=== PATIENT | female | born 1930 | race Caucasian/White ===

== ENCOUNTER 2016-05-20 16:04 | Inpatient (IN) | payer MEDICARE, BC ==
[2016-05-20 18:17] LABS: HEMATOCRIT 36.5 % (36.0-47.0); HEMOGLOBIN 11.9 g/dL (12.0-15.5); HGB HCT DIFFERENCE -0.8; MEAN CORPUSCULAR HEMOGLOBIN 30.5 pg (27.0-33.4); MEAN CORPUSCULAR HGB CONC 32.7 g/dL (32.0-36.0); MEAN CORPUSCULAR VOLUME 93 fl (80-97); RED BLOOD COUNT 3.91 10^6/uL (3.72-5.28); RED CELL DISTRIBUTION WIDTH 19.1 % (11.5-14.0); WHITE BLOOD COUNT 5.5 10^3/uL (4.0-10.5)
[2016-05-20 18:43] LABS: ALANINE AMINOTRANSFERASE 22 U/L (9-52); ALBUMIN 3.2 g/dL (3.5-5.0); ALKALINE PHOSPHATASE 109 U/L (38-126); ANION GAP 11 (5-19); ASPARTATE AMINO TRANSFERASE 26 U/L (14-36); BLOOD UREA NITROGEN 16 mg/dL (7-20); CALCIUM 9.4 mg/dL (8.4-10.2); CARBON DIOXIDE 25 mmol/L (22-30); CHLORIDE 105 mmol/L (98-107); CREATININE RESULT 0.84 mg/dL (0.52-1.25); GLUCOSE 89 mg/dL (75-110); POTASSIUM 4.5 mmol/L (3.6-5.0); SODIUM 141.3 mmol/L (137-145); TOTAL PROTEIN 6.2 g/dL (6.3-8.2)
[2016-05-20 19:10] LABS: THYROID STIMULATING HORMONE 2.69 uIU/mL (0.47-4.68)
[2016-05-20] MEDS ORDERED: LORAZEPAM 1 MG TABLET PO ONE (19:15)
--- NOTE | 2016-05-20 19:52 | EKG REPORT ---
SEVERITY:- ABNORMAL ECG - ATRIAL FIBRILLATION, V-RATE 40-68 PROLONGED QT INTERVAL : Confirmed by: Rere Chen 20-May-2016 19:51:58
[2016-05-20] MEDS: HYDROCODONE/ACETAMINOPHEN 10-325 MG TABLET PO PRN (19:54)
[2016-05-21] MEDS ORDERED: (PENDING PHARMACY ID) (Sennosides [Senna Laxative] 8.6 MG) PO PRN (01:23)
[2016-05-21] MEDS ORDERED: HYDROCODONE/ACETAMINOPHEN 10-325 MG TABLET PO PRN (01:23)
[2016-05-21 01:26] LABS: APPEARANCE,URINE CLEAR; BILIRUBIN,URINE NEGATIVE (NEGATIVE); GLUCOSE, URINE NEGATIVE (NEGATIVE); KETONES,URINE NEGATIVE (NEGATIVE); LEUKOCYTE ESTERASE,URINE SMALL (NEGATIVE); NITRITE,URINE NEGATIVE (NEGATIVE); PROTEIN,URINE NEGATIVE (NEGATIVE); URINE SPECIFIC GRAVITY 1.021
[2016-05-21] MEDS ORDERED: TEMAZEPAM 15 MG CAPSULE PO ONE (02:15)
[2016-05-21] MEDS: LANSOPRAZOLE 30 MG TAB.RAP.DR PO SCH (05:22)
[2016-05-21] MEDS ORDERED: LORAZEPAM 1 MG TABLET PO SCH (10:00)
[2016-05-21] MEDS: CYANOCOBALAMIN (VITAMIN B-12) 1,000 MCG TABLET PO SCH (10:25)
[2016-05-21] MEDS: PAROXETINE HCL 20 MG TABLET PO SCH (10:26)
[2016-05-21] MEDS: OXYBUTYNIN CHLORIDE 5 MG TABLET PO SCH ×2 (10:27→17:02)
[2016-05-21] MEDS: LEVETIRACETAM 500 MG TABLET PO SCH ×2 (10:27→17:02)
[2016-05-21] MEDS: OMEGA-3 ACID ETHYL ESTERS 1 GM CAPSULE PO SCH ×2 (10:28→16:59)
[2016-05-21] MEDS: ASPIRIN 81 MG TABLET, CHEWABLE PO SCH (10:30)
[2016-05-21] MEDS: AMLODIPINE BESYLATE 2.5 MG TABLET PO SCH (10:30)
[2016-05-21] MEDS: LORAZEPAM 1 MG TABLET PO SCH ×2 (10:31→17:04)
[2016-05-21] MEDS: BUDESONIDE/FORMOTEROL 160-4.5 MCG 60 PUFF/6 GM MDI IH SCH ×2 (10:34→17:03)
[2016-05-21] MEDS: NORMAL SALINE 1000 ML 1,000 ML IV PRN (14:35)
[2016-05-21 16:48] LABS: ABSOLUTE EOSINOPHILS # (AUTO) 0.3 10^3/uL (0.0-0.6); ABSOLUTE LYMPHOCYTES (AUTO) 0.9 10^3/uL (0.5-4.7); ABSOLUTE MONOCYTES (AUTO) 0.2 10^3/uL (0.1-1.4); BASOPHILS % (AUTO) 0.5 % (0-2); EOSINOPHILS % (AUTO) 5.7 % (0-6); HEMATOCRIT 32.1 % (36.0-47.0); HEMOGLOBIN 10.6 g/dL (12.0-15.5); HGB HCT DIFFERENCE -0.3; LYMPHOCYTES % (AUTO) 21.3 % (13-45); MEAN CORPUSCULAR HGB CONC 33.2 g/dL (32.0-36.0); MEAN CORPUSCULAR VOLUME 93 fl (80-97); MONOCYTES % (AUTO) 4.6 % (3-13); RED BLOOD COUNT 3.43 10^6/uL (3.72-5.28); SEGMENTED NEUTROPHILS % (AUTO) 67.9 % (42-78); WHITE BLOOD COUNT 4.5 10^3/uL (4.0-10.5)
[2016-05-21 17:07] LABS: ALANINE AMINOTRANSFERASE 25 U/L (9-52); ALBUMIN 2.6 g/dL (3.5-5.0); ALKALINE PHOSPHATASE 89 U/L (38-126); ANION GAP 8 (5-19); ASPARTATE AMINO TRANSFERASE 20 U/L (14-36); BILIRUBIN,TOTAL 0.6 mg/dL (0.2-1.3); BLOOD UREA NITROGEN 15 mg/dL (7-20); CALCIUM 8.7 mg/dL (8.4-10.2); CARBON DIOXIDE 25 mmol/L (22-30); CHLORIDE 105 mmol/L (98-107); CREATININE RESULT 0.85 mg/dL (0.52-1.25); GLUCOSE 96 mg/dL (75-110); POTASSIUM 3.9 mmol/L (3.6-5.0); SODIUM 137.5 mmol/L (137-145); TOTAL PROTEIN 5.3 g/dL (6.3-8.2)
[2016-05-21] MEDS: METOPROLOL SUCCINATE 50 MG TAB.SR.24H PO SCH (18:42)
--- NOTE | 2016-05-21 19:19 | PDOC H&P ---
History of Present Illness Admission Date/PCP: 05/20/16 16:04 History of Present Illness: RIRI MCHUGH is a 85 year old female, she came to the office with the daughter because of progressive weight loss, anorexia. Patient's daughter was concerned that she has not been eating and drinking well for the last couple of days and she was particularly concern about dehydration. She obviously has lost a lot of weight, in the office, she was evaluated, she is known to have history of peripheral vascular disease, the pedal pulses were both absent On palpation, bilaterally., She has multiple comorbid conditions including intracerebral hemorrhage, COPD, primary hypertension, CT scan of abdomen and pelvis/chest was done, it shows atrophic left kidney. There is no hydronephrosis or hydroureter. There is infrarenal abdominal aortic aneurysm with maximum transverse diameter of 5.3 cm. There is endovascular stents in the infrarenal abdominal aorta extending into the common iliac arteries and the right external iliac artery. CT chest showed emphysematous changes with chronic scarring. No masses, infiltrate, pneumothorax, no pleural effusion. The thyroid function was normal, there is also associated hypoalbuminemia an independent poor prognostic indicator, the urine protein is negative on dipstick though this does not be detect albumin. She is of advanced age, I do not know how aggressive family wants to pursue diagnostic evaluation for the weight loss, she probably needed diagnostic colonoscopy. She has a history of chronic atrial fibrillation but she is not on any chronic anticoagulant since she had intracranial hemorrhage associated with Coumadin usage. Past Medical History Cardiac Medical History: Reports: Atrial Fibrillation, Congestive Heart Failure , Coronary Artery Disease, Myocardial Infarction, Hyperlipidema, Hypertension, Peripheral Vascular Disease, Pulmonary Embolism, Heart Murmur Pulmonary Medical History: Reports: Asthma, Chronic Obstructive Pulmonary Disease (COPD), Pneumonia Denies: Bronchitis Endocrine Medical History: Reports: Hypothyroidism GI Medical History: Reports: Gastroesophageal Reflux Disease Musculoskeltal Medical History: Reports: Arthritis Psychiatric Medical History: Reports: Depression Past Surgical History Past Surgical History: Reports: Appendectomy, Cardiac Catheterization, Cholecystectomy, Coronary Artery Bypass Graft, Coronary Stent, Hysterectomy, Tonsillectomy Social History Lives with: Family Smoking Status: Former Smoker Frequency of Alcohol Use: None Hx Recreational Drug Use: No Drugs: None Hx Prescription Drug Abuse: No Family History Family History: Reviewed & Not Pertinent Parental Family History Reviewed: Yes Children Family History Reviewed: Yes Sibling(s) Family History Reviewed.: Yes Medication/Allergy Home Medications: Amlodipine Besylate 2.5 mg PO DAILY 05/20/16 Aspirin [Aspirin 81 mg Chewable Tablet] 81 mg PO DAILY 05/20/16 Budesonide/Formoterol Fumarate [Symbicort HFA 160-4.5 mcg Inhaler 6 gm] 2 puff PO BID 05/20/16 Cyanocobalamin (Vitamin B-12) [B-12] 1,000 mcg PO DAILY 05/20/16 Hydrocodone Bit/Acetaminophen [Hydrocodon-Acetaminophn 10-325] 1 each PO Q6HP PRN 05/20/16 Lansoprazole 30 mg PO DAILY 05/20/16 Levetiracetam [Keppra 500 mg Tablet] 500 mg PO BID 05/20/16 Lorazepam 1 mg PO BID 05/20/16 Metoprolol Succinate 100 mg PO DAILY 05/20/16 [place]-3 Acid Ethyl Esters [Lovaza 1 gm Capsule] 2 gm PO BID 05/20/16 Oxybutynin Chloride 5 mg PO BID 05/20/16 Paroxetine HCl [Paxil] 40 mg PO QAM 05/20/16 Sennosides [Senna Laxative] 8.6 mg PO QHS PRN 05/20/16 Temazepam 15 mg PO QHS 05/20/16 Allergies/Adverse Reactions: codeine [Codeine] Allergy (Mild, Verified 07/19/13 01:16) Iodinated Contrast Media - Oral and [IV Dye, Iodine Containing] Allergy (Mild, Verified 07/19/13 01:16) Penicillins Allergy (Mild, Verified 07/19/13 01:16) Review of Systems Constitutional: PRESENT: anorexia, fatigue, weight loss Nose, Mouth, and Throat: ABSENT: headache(s), mouth pain, sore throat, vertigo, other Cardiovascular: ABSENT: as per HPI, chest pain, dyspnea on exertion, edema, orthropnea, palpitations, other Respiratory: ABSENT: as per HPI, cough, dyspnea, hemoptysis, sputum, other Gastrointestinal: PRESENT: nausea Genitourinary: ABSENT: as per HPI, difficulty urinating, dysuria, hematuria, nocturia, other Musculoskeletal: PRESENT: back pain, joint swelling - She has severe ARTHRITIS of both knees Neurological: PRESENT: abnormal gait, dizziness, frequent falls, restless legs Psychiatric: PRESENT: anxiety Physical Exam Vital Signs: Temp Pulse Resp BP Pulse Ox 98.3 F 53 L 22 H 150/65 H 94 05/21/16 16:03 05/21/16 16:03 05/21/16 16:03 05/21/16 16:03 05/21/16 16:03 Intake & Output 05/20/16 05/21/16 05/22/16 06:59 06:59 06:59 Intake Total 1050 600 Output Total 100 Balance 950 600 Weight 74.4 kg General appearance: PRESENT: mild distress, thin Eye exam: PRESENT: PERRLA Mouth exam: PRESENT: dry mucosa Teeth exam: PRESENT: edentulous Respiratory exam: PRESENT: decreased breath sounds Cardiovascular exam: PRESENT: irregular rhythm, +S1, +S2 GI/Abdominal exam: PRESENT: soft Musculoskeletal exam: PRESENT: deformity Neurological exam: PRESENT: alert Skin exam: PRESENT: dry Results Laboratory Results: 05/21/16 16:25 05/21/16 16:25 05/20/16 05/21/16 05/21/16 18:00 01:00 16:25 WBC 4.5 RBC 3.43 L Hgb 10.6 L Hct 32.1 L MCV 93 MCH 31.0 MCHC 33.2 RDW 19.0 H Plt Count 172 Seg Neutrophils % 67.9 Lymphocytes % 21.3 Monocytes % 4.6 Eosinophils % 5.7 Basophils % 0.5 Absolute Neutrophils 3.0 Absolute Lymphocytes 0.9 Absolute Monocytes 0.2 Absolute Eosinophils 0.3 Absolute Basophils 0.0 Sodium Potassium Chloride Carbon Dioxide Anion Gap BUN Creatinine Est GFR ( Amer) Est GFR (Non-Af Amer) Glucose Calcium Total Bilirubin AST ALT Alkaline Phosphatase Total Protein Albumin TSH 2.69 Free T4 1.70 Urine Color AYAD Urine Appearance CLEAR Urine pH 5.0 Ur Specific [place] 1.021 Urine Protein NEGATIVE Urine Glucose (UA) NEGATIVE Urine Ketones NEGATIVE Urine Blood NEGATIVE Urine Nitrite NEGATIVE Ur Leukocyte Esterase SMALL H Urine WBC (Auto) 2 Urine RBC (Auto) 1 05/21/16 16:25 WBC RBC Hgb Hct MCV MCH MCHC RDW Plt Count Seg Neutrophils % Lymphocytes % Monocytes % Eosinophils % Basophils % Absolute Neutrophils Absolute Lymphocytes Absolute Monocytes Absolute Eosinophils Absolute Basophils Sodium 137.5 Potassium 3.9 Chloride 105 Carbon Dioxide 25 Anion Gap 8 BUN 15 Creatinine 0.85 Est GFR ( Amer) > 60 Est GFR (Non-Af Amer) > 60 Glucose 96 Calcium 8.7 Total Bilirubin 0.6 AST 20 ALT 25 Alkaline Phosphatase 89 Total Protein 5.3 L Albumin 2.6 L TSH Free T4 Urine Color Urine Appearance Urine pH Ur Specific [place] Urine Protein Urine Glucose (UA) Urine Ketones Urine Blood Urine Nitrite Ur Leukocyte Esterase Urine WBC (Auto) Urine RBC (Auto) Impressions: Abdomen/Pelvis CT 05/20/16 00:00 IMPRESSION: INFRARENAL ABDOMINAL AORTIC ANEURYSM WITH ENDOVASCULAR STENT IN THE INFRARENAL ABDOMINAL AORTA EXTENDING INTO THE ILIAC ARTERIES. OTHER CHRONIC FINDINGS ABOVE INCLUDING CHRONIC ATROPHY OF THE LEFT KIDNEY. NO OTHER SIGNIFICANT OR ACUTE PROCESS IN THE ABDOMEN OR PELVIS. Chest CT 05/20/16 00:00 IMPRESSION: FOCAL PLEURAL THICKENING VERSUS PLEURAL-BASED MASS IN THE LEFT LATERAL CHEST WALL. NO OTHER SIGNIFICANT FINDINGS. Chest X-Ray 05/20/16 00:00 IMPRESSION: No acute findings. Assessment & Plan - Diagnosis (1) Dehydration Is this a current diagnosis for this admission?: YesPlan: She would be treated with IV fluid for hydration (2) Unexplained weight loss Is this a current diagnosis for this admission?: Yes (3) Hypoalbuminemia due to protein-calorie malnutrition Is this a current diagnosis for this admission?: YesPlan: There is hypoalbuminemia due to protein calorie malnutrition consultation from nutritional we be requested (4) Chronic atrial fibrillation Is this a current diagnosis for this admission?: Yes
[2016-05-21] MEDS: TEMAZEPAM 15 MG CAPSULE PO SCH (21:15)
[2016-05-22] MEDS: LANSOPRAZOLE 30 MG TAB.RAP.DR PO SCH (05:27)
[2016-05-22] MEDS: OMEGA-3 ACID ETHYL ESTERS 1 GM CAPSULE PO SCH ×2 (07:38→18:06)
[2016-05-22] MEDS: PAROXETINE HCL 20 MG TABLET PO SCH (07:39)
[2016-05-22] MEDS: METOPROLOL SUCCINATE 50 MG TAB.SR.24H PO SCH (09:45)
[2016-05-22] MEDS: LEVETIRACETAM 500 MG TABLET PO SCH ×2 (09:47→18:11)
[2016-05-22] MEDS: AMLODIPINE BESYLATE 2.5 MG TABLET PO SCH (09:47)
[2016-05-22] MEDS: ASPIRIN 81 MG TABLET, CHEWABLE PO SCH (09:50)
[2016-05-22] MEDS: CYANOCOBALAMIN (VITAMIN B-12) 1,000 MCG TABLET PO SCH (09:50)
[2016-05-22] MEDS: OXYBUTYNIN CHLORIDE 5 MG TABLET PO SCH ×2 (09:51→18:12)
[2016-05-22] MEDS: BUDESONIDE/FORMOTEROL 160-4.5 MCG 60 PUFF/6 GM MDI IH SCH ×2 (09:52→18:16)
[2016-05-22] MEDS: LORAZEPAM 1 MG TABLET PO SCH ×2 (09:57→18:12)
--- NOTE | 2016-05-22 18:29 | PDOC PROGRESS REPORT ---
Subjective Progress Note for:: 05/21/16 Subjective:: Patient was seen by the bedside. Still on IV fluids yet to be be seen by nutrition Physical Exam Vital Signs: Temp Pulse Resp BP Pulse Ox 98.3 F 53 L 22 H 150/65 H 94 05/21/16 16:03 05/21/16 16:03 05/21/16 16:03 05/21/16 16:03 05/21/16 16:03 Intake & Output 05/20/16 05/21/16 05/22/16 06:59 06:59 06:59 Intake Total 1050 600 Output Total 100 Balance 950 600 Weight 74.4 kg General appearance: PRESENT: no acute distress Eye exam: PRESENT: PERRLA Respiratory exam: PRESENT: clear to auscultation peggy Cardiovascular exam: PRESENT: +S1, +S2 Results Laboratory Results: 05/21/16 16:25 05/21/16 16:25 05/21/16 05/21/16 05/21/16 01:00 16:25 16:25 WBC 4.5 RBC 3.43 L Hgb 10.6 L Hct 32.1 L MCV 93 MCH 31.0 MCHC 33.2 RDW 19.0 H Plt Count 172 Seg Neutrophils % 67.9 Lymphocytes % 21.3 Monocytes % 4.6 Eosinophils % 5.7 Basophils % 0.5 Absolute Neutrophils 3.0 Absolute Lymphocytes 0.9 Absolute Monocytes 0.2 Absolute Eosinophils 0.3 Absolute Basophils 0.0 Sodium 137.5 Potassium 3.9 Chloride 105 Carbon Dioxide 25 Anion Gap 8 BUN 15 Creatinine 0.85 Est GFR ( Amer) > 60 Est GFR (Non-Af Amer) > 60 Glucose 96 Calcium 8.7 Total Bilirubin 0.6 AST 20 ALT 25 Alkaline Phosphatase 89 Total Protein 5.3 L Albumin 2.6 L Urine Color AYAD Urine Appearance CLEAR Urine pH 5.0 Ur Specific [place] 1.021 Urine Protein NEGATIVE Urine Glucose (UA) NEGATIVE Urine Ketones NEGATIVE Urine Blood NEGATIVE Urine Nitrite NEGATIVE Ur Leukocyte Esterase SMALL H Urine WBC (Auto) 2 Urine RBC (Auto) 1 Impressions: Abdomen/Pelvis CT 05/20/16 00:00 IMPRESSION: INFRARENAL ABDOMINAL AORTIC ANEURYSM WITH ENDOVASCULAR STENT IN THE INFRARENAL ABDOMINAL AORTA EXTENDING INTO THE ILIAC ARTERIES. OTHER CHRONIC FINDINGS ABOVE INCLUDING CHRONIC ATROPHY OF THE LEFT KIDNEY. NO OTHER SIGNIFICANT OR ACUTE PROCESS IN THE ABDOMEN OR PELVIS. Chest CT 05/20/16 00:00 IMPRESSION: FOCAL PLEURAL THICKENING VERSUS PLEURAL-BASED MASS IN THE LEFT LATERAL CHEST WALL. NO OTHER SIGNIFICANT FINDINGS. Chest X-Ray 05/20/16 00:00 IMPRESSION: No acute findings. Assessment & Plan - Diagnosis (1) Dehydration Is this a current diagnosis for this admission?: Yes (2) Unexplained weight loss Is this a current diagnosis for this admission?: Yes (3) Hypoalbuminemia due to protein-calorie malnutrition Is this a current diagnosis for this admission?: Yes (4) Chronic atrial fibrillation Is this a current diagnosis for this admission?: Yes
--- NOTE | 2016-05-22 18:31 | PDOC PROGRESS REPORT ---
Subjective Progress Note for:: 05/22/16 Subjective:: The urine culture is growing gram-negative rods Physical Exam Vital Signs: Temp Pulse Resp BP Pulse Ox 97.3 F 56 L 18 182/93 H 98 05/22/16 16:56 05/22/16 16:56 05/22/16 16:56 05/22/16 16:56 05/22/16 16:56 Intake & Output 05/21/16 05/22/16 05/23/16 06:59 06:59 06:59 Intake Total 1050 3472 0 Output Total 100 0 Balance 950 3472 0 Weight 74.4 kg General appearance: PRESENT: no acute distress Eye exam: PRESENT: PERRLA Respiratory exam: PRESENT: clear to auscultation peggy Cardiovascular exam: PRESENT: rubs, +S2 Results Laboratory Results: 05/21/16 16:25 05/21/16 16:25 Impressions: Abdomen/Pelvis CT 05/20/16 00:00 IMPRESSION: INFRARENAL ABDOMINAL AORTIC ANEURYSM WITH ENDOVASCULAR STENT IN THE INFRARENAL ABDOMINAL AORTA EXTENDING INTO THE ILIAC ARTERIES. OTHER CHRONIC FINDINGS ABOVE INCLUDING CHRONIC ATROPHY OF THE LEFT KIDNEY. NO OTHER SIGNIFICANT OR ACUTE PROCESS IN THE ABDOMEN OR PELVIS. Chest CT 05/20/16 00:00 IMPRESSION: FOCAL PLEURAL THICKENING VERSUS PLEURAL-BASED MASS IN THE LEFT LATERAL CHEST WALL. NO OTHER SIGNIFICANT FINDINGS. Chest X-Ray 05/20/16 00:00 IMPRESSION: No acute findings. Assessment & Plan - Diagnosis (1) Dehydration Is this a current diagnosis for this admission?: Yes (2) Unexplained weight loss Is this a current diagnosis for this admission?: Yes (3) Hypoalbuminemia due to protein-calorie malnutrition Is this a current diagnosis for this admission?: Yes (4) Chronic atrial fibrillation Is this a current diagnosis for this admission?: Yes (5) Urinary tract infection Qualifiers: Urinary tract infection type: site unspecified Hematuria presence: without hematuria Qualified Code(s): N39.0 - Urinary tract infection, site not specified Is this a current diagnosis for this admission?: YesPlan: Start IV antibiotic, Cipro
[2016-05-22] MEDS: TEMAZEPAM 15 MG CAPSULE PO SCH (21:31)
[2016-05-22] MEDS: CIPROFLOXACIN 400 MG/D5W RTU 400 MG/200 ML RTUPB IV SCH (21:31)
[2016-05-23] MEDS: LANSOPRAZOLE 30 MG TAB.RAP.DR PO SCH (05:24)
[2016-05-23] MEDS: CIPROFLOXACIN 400 MG/D5W RTU 200 ML IV SCH ×2 (05:24→17:54)
[2016-05-23] MEDS: OMEGA-3 ACID ETHYL ESTERS 1 GM CAPSULE PO SCH ×2 (08:38→17:35)
[2016-05-23] MEDS: PAROXETINE HCL 20 MG TABLET PO SCH (08:39)
[2016-05-23] MEDS: AMLODIPINE BESYLATE 2.5 MG TABLET PO SCH (10:12)
[2016-05-23] MEDS: CIPROFLOXACIN 400 MG/D5W RTU 400 MG/200 ML RTUPB IV SCH ×2 (10:13→21:15)
[2016-05-23] MEDS: BUDESONIDE/FORMOTEROL 160-4.5 MCG 60 PUFF/6 GM MDI IH SCH ×2 (10:13→17:36)
[2016-05-23] MEDS: ASPIRIN 81 MG TABLET, CHEWABLE PO SCH (10:13)
[2016-05-23] MEDS: LEVETIRACETAM 500 MG TABLET PO SCH ×2 (10:14→17:37)
[2016-05-23] MEDS: LORAZEPAM 1 MG TABLET PO SCH ×2 (10:14→17:37)
[2016-05-23] MEDS: OXYBUTYNIN CHLORIDE 5 MG TABLET PO SCH ×2 (10:14→17:37)
[2016-05-23] MEDS: CYANOCOBALAMIN (VITAMIN B-12) 1,000 MCG TABLET PO SCH (10:14)
[2016-05-23] MEDS: METOPROLOL SUCCINATE 50 MG TAB.SR.24H PO SCH (10:15)
--- NOTE | 2016-05-23 16:15 | PDOC PROGRESS REPORT ---
Subjective Progress Note for:: 05/23/16 Subjective:: Patient was seen by the bedside, it seems that her appetite improve some since she was started on antibiotic. The urine culture grew Proteus and Escherichia coli, both sensitive to Cipro. Physical Exam Vital Signs: Temp Pulse Resp BP Pulse Ox 97.5 F 59 L 16 177/90 H 93 05/23/16 08:19 05/23/16 08:19 05/23/16 08:19 05/23/16 08:19 05/23/16 12:25 Intake & Output 05/22/16 05/23/16 05/24/16 06:59 06:59 06:59 Intake Total 3472 2069 Output Total 0 Balance 3472 2069 General appearance: PRESENT: no acute distress Eye exam: PRESENT: PERRLA Respiratory exam: PRESENT: clear to auscultation peggy Cardiovascular exam: PRESENT: +S1, +S2 GI/Abdominal exam: PRESENT: soft Neurological exam: PRESENT: alert Results Laboratory Results: 05/21/16 16:25 05/21/16 16:25 05/21/16 01:00 Clean Catch Midstream Urine Culture - Final Proteus Mirabilis Escherichia Coli Impressions: Abdomen/Pelvis CT 05/20/16 00:00 IMPRESSION: INFRARENAL ABDOMINAL AORTIC ANEURYSM WITH ENDOVASCULAR STENT IN THE INFRARENAL ABDOMINAL AORTA EXTENDING INTO THE ILIAC ARTERIES. OTHER CHRONIC FINDINGS ABOVE INCLUDING CHRONIC ATROPHY OF THE LEFT KIDNEY. NO OTHER SIGNIFICANT OR ACUTE PROCESS IN THE ABDOMEN OR PELVIS. Chest CT 05/20/16 00:00 IMPRESSION: FOCAL PLEURAL THICKENING VERSUS PLEURAL-BASED MASS IN THE LEFT LATERAL CHEST WALL. NO OTHER SIGNIFICANT FINDINGS. Chest X-Ray 05/20/16 00:00 IMPRESSION: No acute findings. Assessment & Plan - Diagnosis (1) Dehydration Is this a current diagnosis for this admission?: Yes (2) Unexplained weight loss Is this a current diagnosis for this admission?: Yes (3) Hypoalbuminemia due to protein-calorie malnutrition Is this a current diagnosis for this admission?: Yes (4) Chronic atrial fibrillation Is this a current diagnosis for this admission?: Yes (5) Urinary tract infection Qualifiers: Urinary tract infection type: site unspecified Hematuria presence: without hematuria Qualified Code(s): N39.0 - Urinary tract infection, site not specified Is this a current diagnosis for this admission?: Yes (6) Urinary tract infection due to Proteus Is this a current diagnosis for this admission?: YesPlan: Continue IV ciprofloxacin (7) Escherichia coli urinary tract infection Is this a current diagnosis for this admission?: YesPlan: Continue IV ciprofloxacin
[2016-05-23] MEDS: HYDROCODONE/ACETAMINOPHEN 10-325 MG TABLET PO PRN (20:10)
[2016-05-23] MEDS: TEMAZEPAM 15 MG CAPSULE PO SCH (21:15)
[2016-05-24] MEDS: LANSOPRAZOLE 30 MG TAB.RAP.DR PO SCH (05:49)
[2016-05-24] MEDS: NORMAL SALINE 1000 ML 1,000 ML IV PRN (09:03)
[2016-05-24] MEDS: CIPROFLOXACIN 400 MG/D5W RTU 400 MG/200 ML RTUPB IV SCH (09:07)
[2016-05-24] MEDS: OMEGA-3 ACID ETHYL ESTERS 1 GM CAPSULE PO SCH ×2 (09:07→17:48)
[2016-05-24] MEDS: AMLODIPINE BESYLATE 2.5 MG TABLET PO SCH (09:07)
[2016-05-24] MEDS: OXYBUTYNIN CHLORIDE 5 MG TABLET PO SCH ×2 (09:07→17:48)
[2016-05-24] MEDS: CYANOCOBALAMIN (VITAMIN B-12) 1,000 MCG TABLET PO SCH (09:08)
[2016-05-24] MEDS: PAROXETINE HCL 20 MG TABLET PO SCH (09:08)
[2016-05-24] MEDS: LORAZEPAM 1 MG TABLET PO SCH ×2 (09:08→17:48)
[2016-05-24] MEDS: METOPROLOL SUCCINATE 50 MG TAB.SR.24H PO SCH (09:08)
[2016-05-24] MEDS: ASPIRIN 81 MG TABLET, CHEWABLE PO SCH (09:09)
[2016-05-24] MEDS: BUDESONIDE/FORMOTEROL 160-4.5 MCG 60 PUFF/6 GM MDI IH SCH ×2 (09:09→17:48)
[2016-05-24] MEDS: LEVETIRACETAM 500 MG TABLET PO SCH ×2 (09:09→17:48)
--- NOTE | 2016-05-24 20:39 | PDOC PROGRESS REPORT ---
Subjective Progress Note for:: 05/24/16 Subjective:: Patient is seen by the bedside Physical Exam Vital Signs: Temp Pulse Resp BP Pulse Ox 98.0 F 71 16 155/59 H 93 05/24/16 16:21 05/24/16 19:00 05/24/16 16:21 05/24/16 16:21 05/24/16 11:58 Intake & Output 05/23/16 05/24/16 05/25/16 06:59 06:59 06:59 Intake Total 2068 2109 510 Output Total 0 Balance 2068 2108 510 General appearance: PRESENT: no acute distress Eye exam: PRESENT: PERRLA Respiratory exam: PRESENT: clear to auscultation peggy Cardiovascular exam: PRESENT: +S1, +S2 GI/Abdominal exam: PRESENT: soft Results Laboratory Results: 05/21/16 16:25 05/21/16 16:25 05/21/16 01:00 Clean Catch Midstream Urine Culture - Final Proteus Mirabilis Escherichia Coli Impressions: Abdomen/Pelvis CT 05/20/16 00:00 IMPRESSION: INFRARENAL ABDOMINAL AORTIC ANEURYSM WITH ENDOVASCULAR STENT IN THE INFRARENAL ABDOMINAL AORTA EXTENDING INTO THE ILIAC ARTERIES. OTHER CHRONIC FINDINGS ABOVE INCLUDING CHRONIC ATROPHY OF THE LEFT KIDNEY. NO OTHER SIGNIFICANT OR ACUTE PROCESS IN THE ABDOMEN OR PELVIS. Chest CT 05/20/16 00:00 IMPRESSION: FOCAL PLEURAL THICKENING VERSUS PLEURAL-BASED MASS IN THE LEFT LATERAL CHEST WALL. NO OTHER SIGNIFICANT FINDINGS. Chest X-Ray 05/20/16 00:00 IMPRESSION: No acute findings. Assessment & Plan - Diagnosis (1) Dehydration Is this a current diagnosis for this admission?: Yes (2) Unexplained weight loss Is this a current diagnosis for this admission?: Yes (3) Hypoalbuminemia due to protein-calorie malnutrition Is this a current diagnosis for this admission?: Yes (4) Chronic atrial fibrillation Is this a current diagnosis for this admission?: Yes (5) Urinary tract infection Qualifiers: Urinary tract infection type: site unspecified Hematuria presence: without hematuria Qualified Code(s): N39.0 - Urinary tract infection, site not specified Is this a current diagnosis for this admission?: Yes (6) Urinary tract infection due to Proteus Is this a current diagnosis for this admission?: Yes (7) Escherichia coli urinary tract infection Is this a current diagnosis for this admission?: Yes
[2016-05-24] MEDS ORDERED: LORATADINE 10 MG TABLET PO ONE (21:00)
[2016-05-24] MEDS: TEMAZEPAM 15 MG CAPSULE PO SCH (21:09)
[2016-05-24] MEDS: LEVOFLOXACIN 500 MG TABLET PO SCH (21:09)
[2016-05-25] MEDS: LANSOPRAZOLE 30 MG TAB.RAP.DR PO SCH (06:23)
[2016-05-25] MEDS: OMEGA-3 ACID ETHYL ESTERS 1 GM CAPSULE PO SCH ×2 (09:15→18:56)
[2016-05-25] MEDS: LORAZEPAM 1 MG TABLET PO SCH ×2 (09:16→22:14)
[2016-05-25] MEDS: ASPIRIN 81 MG TABLET, CHEWABLE PO SCH (09:16)
[2016-05-25] MEDS: PAROXETINE HCL 20 MG TABLET PO SCH (09:16)
[2016-05-25] MEDS: CYANOCOBALAMIN (VITAMIN B-12) 1,000 MCG TABLET PO SCH (09:17)
[2016-05-25] MEDS: LEVETIRACETAM 500 MG TABLET PO SCH ×2 (09:17→18:57)
[2016-05-25] MEDS: AMLODIPINE BESYLATE 2.5 MG TABLET PO SCH (09:17)
[2016-05-25] MEDS: OXYBUTYNIN CHLORIDE 5 MG TABLET PO SCH ×2 (09:17→18:57)
[2016-05-25] MEDS: LORATADINE 10 MG TABLET PO SCH (09:18)
[2016-05-25] MEDS: METOPROLOL SUCCINATE 50 MG TAB.SR.24H PO SCH (09:18)
[2016-05-25] MEDS: BUDESONIDE/FORMOTEROL 160-4.5 MCG 60 PUFF/6 GM MDI IH SCH ×2 (09:19→18:57)
[2016-05-25] MEDS ORDERED: LANSOPRAZOLE 30 MG TAB.RAP.DR PO ONE (10:15)
[2016-05-25] MEDS: HYDROCODONE/ACETAMINOPHEN 10-325 MG TABLET PO PRN ×2 (15:05→22:21)
--- NOTE | 2016-05-25 19:29 | PDOC PROGRESS REPORT ---
Subjective Progress Note for:: 05/25/16 Subjective:: Patient is ready for rehabilitation, family prefers a facility outside [place] , discharge planning is working with them Physical Exam Vital Signs: Temp Pulse Resp BP Pulse Ox 98.2 F 65 19 151/75 H 94 05/25/16 16:04 05/25/16 16:04 05/25/16 16:04 05/25/16 16:04 05/25/16 17:12 Intake & Output 05/24/16 05/25/16 05/26/16 06:59 06:59 06:59 Intake Total 2109 760 700 Output Total 300 Balance 2109 460 700 General appearance: PRESENT: no acute distress Eye exam: PRESENT: PERRLA Respiratory exam: PRESENT: clear to auscultation peggy Cardiovascular exam: PRESENT: +S1, +S2 Results Laboratory Results: 05/21/16 16:25 05/21/16 16:25 05/20/16 18:00 Blood Blood Culture - Final NO GROWTH IN 5 DAYS 05/20/16 17:00 Blood Blood Culture - Final NO GROWTH IN 5 DAYS Impressions: Abdomen/Pelvis CT 05/20/16 00:00 IMPRESSION: INFRARENAL ABDOMINAL AORTIC ANEURYSM WITH ENDOVASCULAR STENT IN THE INFRARENAL ABDOMINAL AORTA EXTENDING INTO THE ILIAC ARTERIES. OTHER CHRONIC FINDINGS ABOVE INCLUDING CHRONIC ATROPHY OF THE LEFT KIDNEY. NO OTHER SIGNIFICANT OR ACUTE PROCESS IN THE ABDOMEN OR PELVIS. Chest CT 05/20/16 00:00 IMPRESSION: FOCAL PLEURAL THICKENING VERSUS PLEURAL-BASED MASS IN THE LEFT LATERAL CHEST WALL. NO OTHER SIGNIFICANT FINDINGS. Chest X-Ray 05/20/16 00:00 IMPRESSION: No acute findings. Assessment & Plan - Diagnosis (1) Dehydration Is this a current diagnosis for this admission?: Yes (2) Unexplained weight loss Is this a current diagnosis for this admission?: Yes (3) Hypoalbuminemia due to protein-calorie malnutrition Is this a current diagnosis for this admission?: Yes (4) Chronic atrial fibrillation Is this a current diagnosis for this admission?: Yes (5) Urinary tract infection Qualifiers: Urinary tract infection type: site unspecified Hematuria presence: without hematuria Qualified Code(s): N39.0 - Urinary tract infection, site not specified Is this a current diagnosis for this admission?: Yes (6) Urinary tract infection due to Proteus Is this a current diagnosis for this admission?: Yes (7) Escherichia coli urinary tract infection Is this a current diagnosis for this admission?: Yes
[2016-05-25] MEDS: LEVOFLOXACIN 500 MG TABLET PO SCH (22:14)
[2016-05-25] MEDS: TEMAZEPAM 15 MG CAPSULE PO SCH (22:14)
[2016-05-26] MEDS: LANSOPRAZOLE 30 MG TAB.RAP.DR PO SCH (06:34)
[2016-05-26] MEDS: PAROXETINE HCL 20 MG TABLET PO SCH (08:39)
[2016-05-26] MEDS: OMEGA-3 ACID ETHYL ESTERS 1 GM CAPSULE PO SCH ×2 (08:39→18:41)
[2016-05-26] MEDS: LEVETIRACETAM 500 MG TABLET PO SCH ×2 (10:35→18:39)
[2016-05-26] MEDS: AMLODIPINE BESYLATE 2.5 MG TABLET PO SCH (10:36)
[2016-05-26] MEDS: METOPROLOL SUCCINATE 50 MG TAB.SR.24H PO SCH (10:36)
[2016-05-26] MEDS: LORATADINE 10 MG TABLET PO SCH (10:36)
[2016-05-26] MEDS: OXYBUTYNIN CHLORIDE 5 MG TABLET PO SCH ×2 (10:36→18:38)
[2016-05-26] MEDS: LORAZEPAM 1 MG TABLET PO SCH ×2 (10:36→22:06)
[2016-05-26] MEDS: CYANOCOBALAMIN (VITAMIN B-12) 1,000 MCG TABLET PO SCH (10:36)
[2016-05-26] MEDS: BUDESONIDE/FORMOTEROL 160-4.5 MCG 60 PUFF/6 GM MDI IH SCH ×2 (10:37→18:39)
[2016-05-26] MEDS: ASPIRIN 81 MG TABLET, CHEWABLE PO SCH (10:37)
[2016-05-26] MEDS: HYDROCODONE/ACETAMINOPHEN 10-325 MG TABLET PO PRN (19:35)
--- NOTE | 2016-05-26 19:46 | PDOC TRANSFER SUMMARY ---
General - Admit/Disc Date/PCP Admission Date/Primary Care Provider: 05/24/16 07:42 Discharge Date: 05/26/16 - Discharge Diagnosis (1) Dehydration Is this a current diagnosis for this admission?: Yes (2) Unexplained weight loss Is this a current diagnosis for this admission?: Yes (3) Hypoalbuminemia due to protein-calorie malnutrition Is this a current diagnosis for this admission?: Yes (4) Chronic atrial fibrillation Is this a current diagnosis for this admission?: Yes (5) Urinary tract infection Is this a current diagnosis for this admission?: Yes (6) Urinary tract infection due to Proteus Is this a current diagnosis for this admission?: Yes (7) Escherichia coli urinary tract infection Is this a current diagnosis for this admission?: Yes - Additional Information Home Medications: Amlodipine Besylate 2.5 mg PO DAILY 05/20/16 Aspirin [Aspirin 81 mg Chewable Tablet] 81 mg PO DAILY 05/20/16 Budesonide/Formoterol Fumarate [Symbicort HFA 160-4.5 mcg Inhaler 6 gm] 2 puff PO BID 05/20/16 Cyanocobalamin (Vitamin B-12) [B-12] 1,000 mcg PO DAILY 05/20/16 Hydrocodone Bit/Acetaminophen [Hydrocodon-Acetaminophn 10-325] 1 each PO Q6HP PRN 05/20/16 Lansoprazole 30 mg PO DAILY 05/20/16 Levetiracetam [Keppra 500 mg Tablet] 500 mg PO BID 05/20/16 Lorazepam 1 mg PO BID 05/20/16 Metoprolol Succinate 100 mg PO DAILY 05/20/16 [place]-3 Acid Ethyl Esters [Lovaza 1 gm Capsule] 2 gm PO BID 05/20/16 Oxybutynin Chloride 5 mg PO BID 05/20/16 Paroxetine HCl [Paxil] 40 mg PO QAM 05/20/16 Sennosides [Senna Laxative] 8.6 mg PO QHS PRN 05/20/16 Temazepam 15 mg PO QHS 05/20/16 Levofloxacin [Levaquin 500 mg Tablet] 500 mg PO QHS #5 tablet 05/26/16 History of Present Illness Admission Date/PCP: 05/24/16 07:42 History of Present Illness: RIRI MCHUGH is a 85 year old female, she came to the office with the daughter because of progressive weight loss, anorexia. Patient's daughter was concerned that she has not been eating and drinking well for the last couple of days and she was particularly concern about dehydration. She obviously has lost a lot of weight, in the office, she was evaluated, she is known to have history of peripheral vascular disease, the pedal pulses were both absent On palpation, bilaterally., She has multiple comorbid conditions including intracerebral hemorrhage, COPD, primary hypertension, CT scan of abdomen and pelvis/chest was done, it shows atrophic left kidney. There is no hydronephrosis or hydroureter. There is infrarenal abdominal aortic aneurysm with maximum transverse diameter of 5.3 cm. There is endovascular stents in the infrarenal abdominal aorta extending into the common iliac arteries and the right external iliac artery. CT chest showed emphysematous changes with chronic scarring. No masses, infiltrate, pneumothorax, no pleural effusion. The thyroid function was normal, there is also associated hypoalbuminemia an independent poor prognostic indicator, the urine protein is negative on dipstick though this does not be detect albumin. She is of advanced age, I do not know how aggressive family wants to pursue diagnostic evaluation for the weight loss, she probably needed diagnostic colonoscopy. She has a history of chronic atrial fibrillation but she is not on any chronic anticoagulant since she had intracranial hemorrhage associated with Coumadin usage. Hospital Course Hospital Course: Patient was admitted because of poor intake, weight loss, she was found to have hypoalbuminemia due to protein calorie malnutrition. There was dehydration, the urine culture grew Escherichia coli and Proteus. She was treated with intravenous antibiotic, initially with Cipro and this was transitioned to Levaquin. Patient appetite improved when she was started on IV antibiotic Physical Exam Vital Signs: Temp Pulse Resp BP Pulse Ox 97.6 F 84 24 H 150/75 H 86 L 05/26/16 16:09 05/26/16 16:09 05/26/16 16:09 05/26/16 16:09 05/26/16 16:09 Intake & Output 05/25/16 05/26/16 05/27/16 06:59 06:59 06:59 Intake Total 760 1205 300 Output Total 300 Balance 460 1205 300 General appearance: PRESENT: no acute distress Eye exam: PRESENT: PERRLA Respiratory exam: PRESENT: clear to auscultation peggy Cardiovascular exam: PRESENT: +S1, +S2 GI/Abdominal exam: PRESENT: soft Results Laboratory Results: 05/21/16 16:25 05/21/16 16:25 05/20/16 18:00 Blood Blood Culture - Final NO GROWTH IN 5 DAYS 05/20/16 17:00 Blood Blood Culture - Final NO GROWTH IN 5 DAYS Impressions: Abdomen/Pelvis CT 05/20/16 00:00 IMPRESSION: INFRARENAL ABDOMINAL AORTIC ANEURYSM WITH ENDOVASCULAR STENT IN THE INFRARENAL ABDOMINAL AORTA EXTENDING INTO THE ILIAC ARTERIES. OTHER CHRONIC FINDINGS ABOVE INCLUDING CHRONIC ATROPHY OF THE LEFT KIDNEY. NO OTHER SIGNIFICANT OR ACUTE PROCESS IN THE ABDOMEN OR PELVIS. Chest CT 05/20/16 00:00 IMPRESSION: FOCAL PLEURAL THICKENING VERSUS PLEURAL-BASED MASS IN THE LEFT LATERAL CHEST WALL. NO OTHER SIGNIFICANT FINDINGS. Chest X-Ray 05/20/16 00:00 IMPRESSION: No acute findings. Transfer Plan - Disposition Transfer Plan: The plan is to transfer patient to half-way for rehabilitation
[2016-05-26] MEDS: TEMAZEPAM 15 MG CAPSULE PO SCH (22:06)
[2016-05-26] MEDS: LEVOFLOXACIN 500 MG TABLET PO SCH (22:06)
[2016-05-27] MEDS: LANSOPRAZOLE 30 MG TAB.RAP.DR PO SCH (05:31)
[2016-05-27] MEDS: PAROXETINE HCL 20 MG TABLET PO SCH (08:56)
[2016-05-27] MEDS: OMEGA-3 ACID ETHYL ESTERS 1 GM CAPSULE PO SCH (08:56)
[2016-05-27] MEDS ORDERED: IPRATROPIUM/ALBUTEROL 0.5-2.5 MG/3 ML AMPUL NEB PRN (09:37)
[2016-05-27] MEDS ORDERED: DIPHENHYDRAMINE HCL 25 MG CAPSULE PO PRN (09:38)
[2016-05-27] MEDS: ASPIRIN 81 MG TABLET, CHEWABLE PO SCH (10:00)
[2016-05-27] MEDS: METOPROLOL SUCCINATE 50 MG TAB.SR.24H PO SCH (10:00)
[2016-05-27] MEDS: LORAZEPAM 1 MG TABLET PO SCH (10:01)
[2016-05-27] MEDS: LORATADINE 10 MG TABLET PO SCH (10:02)
[2016-05-27] MEDS: OXYBUTYNIN CHLORIDE 5 MG TABLET PO SCH (10:02)
[2016-05-27] MEDS: LEVETIRACETAM 500 MG TABLET PO SCH (10:02)
[2016-05-27] MEDS: CYANOCOBALAMIN (VITAMIN B-12) 1,000 MCG TABLET PO SCH (10:02)
[2016-05-27] MEDS: AMLODIPINE BESYLATE 2.5 MG TABLET PO SCH (10:02)
[2016-05-27] MEDS: BUDESONIDE/FORMOTEROL 160-4.5 MCG 60 PUFF/6 GM MDI IH SCH (10:06)
[2016-05-27 16:41] VITALS: BP 156/90
== END 2016-05-27 17:45 | DRG 690 ==
LOC: INTOOBSV 16:04 → 4S 16:04 → OBSVTOIN 05-24 07:42
PROVIDERS: ADMIT Internal Medicine; ATTEND Internal Medicine
PROC: 3E0F73Z Introduction of Anti-inflammatory into Respiratory Tract, Via Natural or Artificial Opening (ICD-10-PCS; principal; 2016-05-24)
DX: N39.0 Urinary tract infection, site not specified (principal); E46 Unspecified protein-calorie malnutrition; E88.09 Other disorders of plasma-protein metabolism, not elsewhere classified; E86.0 Dehydration; Z68.22 Body mass index [BMI] 22.0-22.9, adult; I48.2 Chronic atrial fibrillation; B96.4 Proteus (mirabilis) (morganii) as the cause of diseases classified elsewhere; B96.20 Unspecified Escherichia coli [E. coli] as the cause of diseases classified elsewhere; I73.9 Peripheral vascular disease, unspecified; J44.9 Chronic obstructive pulmonary disease, unspecified; I10 Essential (primary) hypertension; I71.4 Abdominal aortic aneurysm, without rupture; Z79.82 Long term (current) use of aspirin; Z79.899 Other long term (current) drug therapy; I48.91 Unspecified atrial fibrillation; I50.9 Heart failure, unspecified; I25.10 Atherosclerotic heart disease of native coronary artery without angina pectoris; I25.2 Old myocardial infarction; E78.5 Hyperlipidemia, unspecified; E03.9 Hypothyroidism, unspecified; K21.9 Gastro-esophageal reflux disease without esophagitis; M19.90 Unspecified osteoarthritis, unspecified site; Z86.711 Personal history of pulmonary embolism; Z90.49 Acquired absence of other specified parts of digestive tract; Z95.5 Presence of coronary angioplasty implant and graft; Z95.1 Presence of aortocoronary bypass graft; Z90.710 Acquired absence of both cervix and uterus; Z87.891 Personal history of nicotine dependence; Z88.0 Allergy status to penicillin; Z88.6 Allergy status to analgesic agent; Z91.041 Radiographic dye allergy status
CPT/HCPCS: 36415; 71020; 71250; 74176; 80048; 80053; 80076; 81001; 84439; 84443; 85025; 85027; 87040; 87086; 87088; 87186; 93005; 93010; 94640; G0378; G0379; G8978-GP; G8979-GP; J0744; J3490; J7030; J7620